=== PATIENT | male | born 1995 | race Caucasian/White ===

== ENCOUNTER 2019-11-30 12:46 | Outpatient (CLI) | payer OTHER ==
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
[2019-11-30 14:16] VITALS: BP 116/91
== END 2019-11-30 12:47 | disposition home or self-care (01) ==
LOC: SC 12:46
PROVIDERS: ATTEND Internal Medicine Pulmonary Disease
DX: R06.83 Snoring (principal); R06.81 Apnea, not elsewhere classified; G47.8 Other sleep disorders; R51 Headache; R41.89 Other symptoms and signs involving cognitive functions and awareness; G47.10 Hypersomnia, unspecified
CPT/HCPCS: 99203; 99212

== ENCOUNTER 2019-12-03 20:33 | Outpatient (CLI) | payer OTHER | END 2019-12-03 20:34 | disposition home or self-care (01) | LOC: SC 20:33 | PROVIDERS: ATTEND Internal Medicine Pulmonary Disease | DX: R06.83 Snoring (principal); R06.81 Apnea, not elsewhere classified; G47.10 Hypersomnia, unspecified; G47.8 Other sleep disorders | CPT/HCPCS: 95810 ==

== ENCOUNTER 2019-12-30 08:14 | Outpatient (CLI) | payer OTHER ==
--- NOTE | 2019-12-30 09:05 | SLEEP CARE CONSULTATION ---
Information from patient questionnaire entered by Marilyn Newsome. I have reviewed and concur with the information entered by Marilyn Newsome. This document represents the service I personally performed and the decisions made by me, Karla Andrews RN, MSN, [employer]. History of Present Illness Initial Beverly Sleepiness Scale score: 20 Current Beverly Sleepiness Scale score: 22 Additional HPI information: [place] returns for follow up of the recently performed polysomnography. I explained the pathophysiology behind obstructive sleep apnea. Patient does not have significant sleep disordered breathing and was advised how weight gain could increase the risk of developing sleep apnea in the future. The apnea events noted on sleep study are predominately in supine position with AHI 3.8. So he was advised he could try positional therapy to see if reduced sleepiness symptoms. Methods to achieve positional management therapy were discussed; such as, positioning with pillows, wearing a T-shirt with tennis balls sewn into the back, Rematee shirt, Zzomba belt and Slumberbump belt. Pamphlets provided on how to obtain the commercially available products. Patient has light snoring noted on sleep study but spouse has stated it is loud and disrupts her sleep and she generally awakens him to sleep on his side. Snoring has only been present the last few years with weight gain of 20 pounds though he is at normal weight. However he reports feeling sleepy for years before noted snoring Snoring can be reduced by weight loss. Snoring can also be treated with an oral appliance from a dentist. Advised to check insurance coverage. He is not interested at this time. He also reports difficulty breathing through nose and feels it disrupts his sleep. An ENT evaluation can be done to see if other treatment is indicated and is recommended due to patient symptoms. Patient counseled not drink alcohol less than 4 hours before bedtime as it can increase snoring and apnea. Patient was cautioned about risks of drowsy driving until sleepiness symptoms resolve. Patient reports drowsy driving on long distances . AASM patient education on snoring and sleep apnea given and reviewed as well as [facility] Dangers of Drowsy Driving. Review of sleep history reflects that patient prefers his right side for sleep but is awakened in his sleep by his spouse due to snoring when he is supine. He is awakened about 1-2 times a night. His wake time is 6am on weekdays and weekends are 7:45 to 8 am. Bedtime is 11pm weekdays, weekends 12 am. It takes 30-45 minutes to fall asleep. He does not wake feeling refreshed. It generally takes about 1-2 hours before he feels more rested and this includes caffeine intake of 8 ounces. Sleep Study - Results Polysomnography/Home Sleep Study results: The quality of the study is good. The patient had normal sleep efficiency. The sleep architecture was normal as well. Respiratory monitoring showed no significant sleep disordered breathing (AHI = 3.1) or hypoxia (slava oxygen saturation of 88%). The few respiratory events occurred more frequently during supine sleep (supine AHI = 3.8; non-supine = 1.34). Snore was light in intensity. There was no significant periodic leg movement of sleep. Cardiac rhythm was normal sinus rhythm without significant arrhythmia. No abnormal behavior (parasomnia) observed during the night. Allergies and Home Medications Known drug allergies: No Home medication list reviewed: Yes (none) Review of Systems Review of systems same as previous: Yes Physical Exam Heart Rate: 74 O2 Saturation: 98 Height: 6 ft Weight: 177 lb 9.6 oz Body Mass Index: 24.0 BMI Classification: Healthy weight Impression and Plan 1. Snoring but no significant sleep disordered breathing. Patient advised that often weight loss will reduce snoring as well as apnea risk. However, he is at normal weight. After discussing options to reduce snoring, it was decided he would try positional therapy to reduce snoring and apnea noted when on his back to reduce sleep disruption and sleepiness symptoms. An ENT consult was also recommended to determine if any other treatment is an option especially since he has difficulty breathing through his nose which also awakens him during sleep. Thus he was advised to follow up with PCP for referral. 2. Fatigue / hypersomnia, that could be from his sleep disruption from snoring as noted above as well as his irregular sleep schedule and other medical conditions such as his PTSD. In addition to above measures, he is advised to wake at the same time every day with rationale explained. If he has to sleep in on weekend, it is to be on Saturday only and for no more than 1hour. He is also to follow up with his PCP for further evaluation to determine if any other cause of fatigue/ hypersomnia. * positional management therapy * Follow up with PCP for ENT referral and further evaluation of fatigue / hypersomnia. * Avoid alcohol consumption near bedtime * The patient is cautioned about driving until sleepiness is completely resolved. * Return as needed. Time Spent with Patient (minutes): 33 I spent 100% of this visit face to face with the patient with greater than 50% of this was spent time counseling the patient and coordination of care.
== END 2019-12-30 08:15 | disposition home or self-care (01) ==
LOC: SC 08:14
PROVIDERS: ATTEND Nurse Practitioner Family
DX: R06.83 Snoring (principal); R53.83 Other fatigue; G47.10 Hypersomnia, unspecified
CPT/HCPCS: 99212; 99214

== ENCOUNTER 2020-01-28 13:20 | Outpatient (CLI) | payer OTHER ==
[2020-01-28] MEDS ORDERED: GADOBUTROL 7.5 MMOL/7.5 ML VIAL ONE (13:59)
[2020-01-28] MEDS ORDERED: GADOBUTROL 7.5 MMOL/7.5 ML VIAL IVP ONE (15:08)
--- NOTE | 2020-01-29 09:23 | MRI Report ---
Reason: PAIN IN RT LOWER LEG, SWELLING, MASS, LUMP Procedure Date: 01/28/2020 Accession Number: [id number] / [id number] Procedure: MRI - Lower Leg (Tib-Fib) RT W/WO CPT Code: Final Report FULL RESULT: EXAM: RIGHT CALF/TIBIA MRI WITHOUT AND WITH CONTRAST EXAM DATE: 01/28/2020 03:31 PM. CLINICAL HISTORY: Right lower leg pain. Swelling and mass for 3-1/2 months. COMPARISON: None. TECHNIQUE: Multiplanar, multisequence T1-weighted and fluid-sensitive sequences of the calf/tibia before and after administration of intravenous contrast. IV contrast: 7 mL Gadavist. Other: None. FINDINGS: Bones: No fractures or subluxations. No marrow edema or abnormal enhancement. No bone lesions. Joint Spaces: Visualized portions of the ankle and knee joints are unremarkable. Tendons: Where visualized, the Achilles and plantaris tendons are intact. Musculature: Muscle edema is in the flexor hallucis longus and medial soleus muscles at the site of "mass". This edema is cam-abiv-jwyo but does demonstrate enhancement. There appears to be a tear of the muscle fascial fibers the 2 muscles on (series 1501, image 36). At the center of disruption, there is an almost target-like structure that measures 1.4 x 1.0 x 2.8 cm (1701/13; 1001/40; 1201/20). This has mixed signal intensity on T2-weighted imaging and is almost -intense to the surrounding musculature on T1-weighted imaging. It does have some enhancement as does some of the muscle edema. Other: The subcutaneous tissues are unremarkable. No abscess or cellulitis. IMPRESSION: 1. 2.8 cm lesion centered in a disrupted fascia between the flexor hallucis longus and medial soleus muscles. The surrounding muscle fibers are edematous, including remote from this structure. Overall features favor grade 2 muscular strain with a small intramuscular hematoma. However, given the enhancement and length of time of symptoms, short interval noncontrast MRI follow-up in one month is recommended to exclude an atypical malignancy. [facility]
== END 2020-01-28 13:21 | disposition home or self-care (01) ==
LOC: DI 13:20
PROVIDERS: ATTEND Family Medicine
DX: M79.661 Pain in right lower leg (principal); R22.41 Localized swelling, mass and lump, right lower limb
CPT/HCPCS: 73720; A9585